=== PATIENT | female | born 1980 | race African-American/Black ===

== ENCOUNTER 2017-05-30 11:34 | Emergency (ER) | payer BC, OTHER ==
[2017-05-30 13:11] LABS: #Basophils 0.1 thou/uL (0.0-0.2); #Lymphocytes 1.7 thou/uL (1.20-3.40); #Monocytes 0.4 thou/uL (0.11-0.59); #Neutrophils 4.8 thou/uL (1.40-6.50); %Basophils 1.1 % (0.0-1.0); %Eosinophils 0.5 % (0.0-10.0); %Lymphocytes 23.8 % (21.0-51.0); %Monocytes 5.6 % (0.0-10.0); Hematocrit 36.3 % (36.0-47.0); Mean Platelet Volume 6.3 fL (7.4-10.4); Red Blood Cell (RBC) Count 4.08 mill/uL (4.20-5.40)
--- NOTE | 2017-05-30 13:58 | ULT ---
LIMITED OB ULTRASOUND: Date: 05/30/17 HISTORY: Vaginal bleeding. COMPARISON: None. TECHNIQUE: Transabdominal and endovaginal imaging of gravid uterus performed. FINDINGS: There is a single intrauterine gestation with breech presentation. There are heart tones with a rate of 150 beats/minute. Cervical length is 3.0-3.1 cm. Posterior right placenta. No evidence of previa. Biometry: BPD: 3.85 cm, 17 weeks/5 days HC: 14.67 cm, 17 weeks/6 days AC: 12.01 cm, 17 weeks/5 days FL: 2.32 cm, 17 weeks/0 days Estimated weight is 194 gm. Average age by sonography is 17 weeks/3 days. Estimated delivery date by sonography is 11/04/2017. IMPRESSION: 1. Single intrauterine gestation with breech presentation. 2. Average age by sonography is 17 weeks/3 days. 3. Cervical length between 3.0-3.1 cm. Obstetric consultation is recommended given the decreased le ngth of the cervix. 4. Incomplete survey. Follow-up imaging at 18-20 weeks is recommended. POS: [facility]
[2017-05-30 14:58] LABS: Bilirubin Negative (Negative); Blood, Urine Large (Negative); Glucose, Urine (Dipstick) Negative (Negative); Ketone, Urine 40 mg/dL (Negative); Nitrite Negative (Negative); Protein, Urine (Dipstick) 30 mg/dL (Neg-Trace); Urobilinogen 0.2 mg/dL (0.2-1.0)
[2017-05-30 15:04] LABS: Bacteria/HPF 1+ HPF (None Seen); Squamous Epithelial 21-50 HPF (0-3); WBC/HPF 0-3 HPF (0-3)
== END 2017-05-30 17:34 | disposition home or self-care (01) ==
LOC: SCSER 11:34
DX: O09.92 Supervision of high risk pregnancy, unspecified, second trimester (principal); O20.9 Hemorrhage in early pregnancy, unspecified; O26.872 Cervical shortening, second trimester; O99.512 Diseases of the respiratory system complicating pregnancy, second trimester; J45.909 Unspecified asthma, uncomplicated; O99.352 Diseases of the nervous system complicating pregnancy, second trimester; G43.909 Migraine, unspecified, not intractable, without status migrainosus; O99.342 Other mental disorders complicating pregnancy, second trimester; F41.9 Anxiety disorder, unspecified; Z3A.17 17 weeks gestation of pregnancy; Z79.899 Other long term (current) drug therapy
CPT/HCPCS: 76815; 76856; 81003; 81015; 85025; 87086

== ENCOUNTER 2017-09-16 03:55 | Day surgery (SDC) | payer BC ==
[2017-09-16 04:41] VITALS: BMI 36.8
--- NOTE | 2017-09-16 05:15 | PDOC.LDHP ---
Labor and Delivery H&P Chief complaint: other (low back pain radiating to groin) HPI: Patient of Dr Ratliff. Patient is a at 32 weeks with HX PTB at 36 weeks ( last one) and 28 weeks by CS X2 (both were in ), now with low back pain. No VB, No LOF. No fevers. Good FM. Review of Systems: Negative as per HPI Current gestational age (weeks): 32 Grav: 5 Para: 2 Current medications: other (Asthma MDIs, Progetserone) Previous surgical history: other (CS x2 in ) Allergies/Adverse Reactions: Allergies Allergy/AdvReac Type Severity Reaction Status Date / Time sumatriptan Allergy Severe Rash Verified 09/16/17 04:27 - Physical Exam Vital signs reviewed and normal: yes (BP 117/70 Temp 97.8) General: NAD Heart: RRR Lungs: CTAB Abdomen: gravid Extremeties: no edema FHT: category 1 [place] contractions every: irritability - Vaginal Exam cm dilated: 0 (per RN exam) Effacement: 25% Station: -1 - Plan -: Assessment and Plan: 32 weeks, HX CS x2, presents at 32 weeks with low back pian with radiation to back. No c/o of ctx. Closed cervix. Plan: 1. CBC/CMP 2. IVFs 3. Order bilateral renal sono R/O renal stone 4. No acute needs at this time
[2017-09-16] MEDS ORDERED: Promethazine HCl 25 MG/ML VIAL IM/IV PRN (05:20)
[2017-09-16] MEDS ORDERED: Lactated Ringer's 1,000 ML IV SCH (05:30)
[2017-09-16 06:03] LABS: Bilirubin Negative (Negative); Blood, Urine Negative (Negative); Clarity CLEAR (Clear); Glucose, Urine (Dipstick) Negative (Negative); Leukocyte Negative (Negative); Nitrite Negative (Negative); Protein, Urine (Dipstick) Negative (Neg-Trace); Specific Gravity, Urine 1.018 (1.002-1.036); Urobilinogen 0.2 mg/dL (0.2-1.0); pH, Urine 6.5 (5.0-9.0)
[2017-09-16 06:07] LABS: #Eosinphils 0.3 thou/uL (0.0-0.7); #Lymphocytes 1.7 thou/uL (1.20-3.40); #Monocytes 0.4 thou/uL (0.11-0.59); #Neutrophils 4.8 thou/uL (1.40-6.50); %Basophils 0.2 % (0.0-1.0); %Eosinophils 3.5 % (0.0-10.0); %Lymphocytes 23.9 % (21.0-51.0); %Monocytes 5.9 % (0.0-10.0); %Neutrophils 66.5 % (42.0-75.0); Hemoglobin 11.1 g/dL (12.0-16.0); Mean Corpuscular HGB CONC 32.5 g/dL (32.0-36.0); Mean Corpuscular Hemoglobin 29.7 pg (27.0-31.0); Mean Corpuscular Volume 91.2 fl (81.0-99.0); Mean Platelet Volume 6.4 fL (7.4-10.4); Platelet Count 318 thou/uL (130-400); RBC Distribution Width 12.7 % (11.5-14.5); Red Blood Cell (RBC) Count 3.73 mill/uL (4.20-5.40); White Blood Cell (WBC) Count 7.2 thou/uL (4.8-10.8)
[2017-09-16 06:25] LABS: ALT (SGPT) 7 U/L (8-55); AST (SGOT) 10 U/L (5-34); Albumin 3.4 g/dL (3.5-5.0); Alkaline Phosphatase 82 U/L (40-150); Anion Gap 11 mmol/L (10-20); BUN (Urea Nitrogen) 6 mg/dL (7.0-18.7); Bilirubin, Total 0.8 mg/dL (0.2-1.2); Calc. Creatinine Clearance 202 mL/min (70-130); Calcium 8.9 mg/dL (7.8-10.44); Carbon Dioxide 21 mmol/L (22-29); Chloride 109 mmol/L (98-107); Estimated GFR-MDRD Greater than 90; Globulin 2.4 g/dL (2.4-3.5); Glucose 66 mg/dL (70-105); Potassium 4.2 mmol/L (3.5-5.1); Protein, Total 5.8 g/dL (6.0-8.3); Sodium 137 mmol/L (136-145)
--- NOTE | 2017-09-16 06:34 | PDOC.EVN ---
Event Note - Event Note Event Note: Lab check: labs wnl
--- NOTE | 2017-09-16 06:45 | PDOC.EVN ---
Event Note - Event Note Event Note: Sono with expected hydro on right...otherwise ok. [place] may be physiologic at this time. She declines pain meds as she is driving. ok for outpatient care as no evidence UTI, pyelo, or PTL.
--- NOTE | 2017-09-16 08:09 | PDOC.EVN ---
Event Note - Event Note Event Note: @0800: D/W Radiology, no jet on right...will follow up. Dr Ratliff will be notified. There was no blood in urine. Dr Ratliff was notified to follow up with repeat sono as needed. Low suspicion for obstruction as no blood.
--- NOTE | 2017-09-16 08:34 | ULT ---
PRELIMINARY REPORT/[facility]/EMERGENCY AFTER HOURS PROCEDURE: EXAM: US Retroperitoneal Complete EXAM DATE/TIME: Exam ordered 09/16/2017 6:11 AM CLINICAL HISTORY: 37 years old, female; Pain; Abdominal pain; Flank; Other: Bilat flanks; ; Patient HX: 32 week s , flank pain TECHNIQUE: Real-time ultrasound of the retroperitoneum (complete) with image documentation. COMPARISON: No relevant prior studies available. FINDINGS: Right kidney: There is moderate RIGHT hydroureteronephrosis. RIGHT kidney measures 11.3 x 4.7 x 5.4 c m. No stones. Left kidney: LEFT kidney measures 11.5 x 5.8 x 5.0 cm no hydronephrosis. No stones. Bladder: Ureteral jets are not visualized. This is nonspecific and may be due to timing of ureteral p eristalsis. Obstructing calculus however cannot be excluded. IMPRESSION: There is moderate RIGHT hydroureteronephrosis. This may represent normal kidney dilatation of pregnan cy however obstructing ureterolithiasis this is also possible and clinical correlation is advised. Thank you for allowing us to participate in the care of your patient. Dictated and Authenticated by: Terrence Adame MD 09/16/2017 6:41 AM Central Time ([place] & [place]) FINAL REPORT RENAL ULTRASOUND: CLINICAL HISTORY: A 32-week gestational patient with bilateral back pain. FINDINGS: There is a moderate degree of right hydronephrosis. No overt left hydronephrosis. Ureteral jets are not elicited from this exam. The urinary bladder is mildly distended. IMPRESSION: Moderate right hydronephrosis. Ureteral jets are not elicited on this exam. Consider imaging follow up as clinically necessary. A telephone call of findings to patient's physician, Dr. Sacha Alberto, was placed at the time of inte rpretation. CODE CR POS: [facility]
== END 2017-09-16 06:55 | disposition home or self-care (01) ==
LOC: L&D/OP 03:55
PROVIDERS: ATTEND Obstetrics & Gynecology
DX: O99.89 Other specified diseases and conditions complicating pregnancy, childbirth and the puerperium (principal); M54.5 Low back pain; O99.52 Diseases of the respiratory system complicating childbirth; J45.909 Unspecified asthma, uncomplicated; Z88.8 Allergy status to other drugs, medicaments and biological substances; Z3A.32 32 weeks gestation of pregnancy; Z98.891 History of uterine scar from previous surgery
CPT/HCPCS: 51701; 76770; 80053; 81003; 85025; 96360; 96361; 99283

== ENCOUNTER 2017-09-17 10:04 | Outpatient (CLI) | payer BC ==
--- NOTE | 2017-09-17 13:39 | ULT ---
LIMITED ULTRASOUND URINARY BLADDER: Date: 09/17/17 HISTORY: Patient with right hydronephrosis noted on prior exam. Patient returns today for evaluation of the ur eteral jets. FINDINGS: Comparison is made with study on 09/16/17. As noted on prior exam, there is evidence of a single intrauterine gestation in cephalic presentation . This exam was performed primarily for evaluation of the ureteral jets. Urinary bladder is incomplet mervat distended. Color flow evaluation demonstrates the ureteral jets bilaterally. IMPRESSION: Color flow evaluation demonstrates ureteral jets bilaterally. POS: [facility]
== END 2017-09-17 10:05 | disposition home or self-care (01) ==
LOC: ULT 10:04
PROVIDERS: ATTEND Obstetrics & Gynecology
DX: R93.8 Abnormal findings on diagnostic imaging of other specified body structures (principal)
CPT/HCPCS: 76856

== ENCOUNTER 2017-11-01 05:39 | Inpatient (IN) | payer BC ==
--- NOTE | 2017-10-31 20:02 | PDOC.LDHP ---
Labor and Delivery H&P Chief complaint: scheduled section HPI: 37 yo @ 39w0d by LMP c/w 9 week sono who presents for repeat CS. Pt has h/ o 2 prior CS and 1 delivery. Antepartum course complicated by AMA, h/o PTD, requiring weekly 17 OHP, controlled asthma and valtrex for HSV suppression. Pt has been counseled on options for sterilization and risk reduction and desires a risk reducing salpingectomy due to family history of ovarian cancer at the time of her CS, which has been approved by the ethics committee. Current gestational age (weeks): 39 Due date: 11/08/17 Dating criteria: last menstrual period Grav: 5 Para: 2 OB History Details: 1 elective AB 1 SAB 2 CS (reports delivery approx 30 weeks for spontaneous labor x1 and report reviewed with LTCS @ 38 weeks x1) Current complications: none Abnormal US findings: Yes Past Medical History: Asthma, AMA, obesity Current medications: other (Albuterol PRN, valtrex,) Previous surgical history: low tranverse CS (x2), dilation and curettage Allergies/Adverse Reactions: Allergies Allergy/AdvReac Type Severity Reaction Status Date / Time sumatriptan Allergy Severe Rash Verified 11/01/17 06:07 Social history: none - Physical Exam Vital signs reviewed and normal: yes General: NAD Heart: RRR Lungs: nonlabored breathing Abdomen: gravid Extremeties: no edema FHT: category 1 (130s, mod carmen, +accels, no decels) [place] contractions every: irregular ctx - OB Labs Blood type: B RH: positive Antibody Screen: negative HIV: negative RPR: negative HEPSAg: negative 1 hour GCT: negative GBS: positive Urine drug screen: not done Rubella: immune - Assessment 39 week IUP 2 priors CS H/O PTL>PTD HSV Obesity AMA Controlled asthma Satisfied parity and family h/o ovarian cancer - Plan Plan: to OR for section, informed consent obtained, anesthesia consult for pain management -: Patient also desires a risk reducing salpingectomy to decrease risk of primary ovarian cancer based on family history. Pt has satisfied parity and has been counseled on sterilization as well.
[2017-11-01] MEDS ORDERED: Bicitra 30 ML UDCUP PO SCH (05:44)
[2017-11-01] MEDS ORDERED: Acetaminophen 500 MG TAB PO PRN (05:44)
[2017-11-01] MEDS ORDERED: Promethazine HCl 25 MG/ML VIAL IM PRN ×2 (05:44→07:39)
[2017-11-01] MEDS ORDERED: CEFAZOLIN/Water 2 GM/20 ML SYRINGE SLOW IVP SCH (05:44)
[2017-11-01] MEDS ORDERED: Ondansetron HCl/PF 4 MG/2 ML Vial IVP PRN ×3 (05:44→07:39)
[2017-11-01 06:06] VITALS: BMI 37.8
[2017-11-01] MEDS: Lactated Ringer's 1,000 ML IV SCH ×3 (06:14→16:24)
[2017-11-01 06:26] LABS: Hemoglobin 11.6 g/dL (12.0-16.0); Mean Corpuscular HGB CONC 33.6 g/dL (32.0-36.0); Mean Corpuscular Hemoglobin 30.1 pg (27.0-31.0); Mean Corpuscular Volume 89.4 fl (81.0-99.0); Mean Platelet Volume 6.1 fL (7.4-10.4); Platelet Count 311 thou/uL (130-400); Red Blood Cell (RBC) Count 3.84 mill/uL (4.20-5.40)
[2017-11-01] MEDS ORDERED: Morphine PF 1 MG/ML SYR ONE (06:37)
[2017-11-01] MEDS ORDERED: Fentanyl 100 MCG/2 ML VIAL ONE (06:37)
[2017-11-01] MEDS ORDERED: Ketorolac Tromethamine 30 MG/ML VIAL ONE ×2 (07:02→10:43)
[2017-11-01] MEDS ORDERED: Bupivacaine 0.75% W/DEXTROSE 8.25% 2 ML AMP ONE (07:02)
[2017-11-01 07:06] LABS: Syphilis Antibody Nonreactive (Nonreactive); Syphilis Antibody Index 0.13 S/CO (<1.00 Non-Reactive)
[2017-11-01 07:07] LABS: HBSAg Index 0.15 S/CO (0-0.99); HIV (1/2) Antibody/Antigen Non-Reactive (NonReactive); HIV 1/2 INDEX 0.09 S/CO (<1.00); Hep B Surf Ag Non-Reactive S/CO (NonReactive)
[2017-11-01] MEDS ORDERED: Bicitra 30 ML UDCUP ONE (07:09)
[2017-11-01] MEDS ORDERED: diphenhydrAMINE 50 MG/ML VIAL IVP PRN (07:39)
[2017-11-01] MEDS ORDERED: HYDROmorphone 2 MG/ML VIAL SLOW IVP PRN (07:39)
[2017-11-01] MEDS ORDERED: Eucerin (Mineral Oil/Petrolatum,White) 30 gm Jar TOP PRN (07:39)
[2017-11-01] MEDS ORDERED: Naloxone HCl 0.4 mg/ml Vial IVP PRN ×2 (07:39)
[2017-11-01] MEDS ORDERED: Promethazine HCl 25 MG SUPP PR PRN (07:39)
[2017-11-01] MEDS ORDERED: Naloxone HCl 0.4 mg/ml Vial IV PRN (07:39)
[2017-11-01] MEDS ORDERED: Ketorolac Tromethamine 30 MG/ML VIAL IVP SCH (07:45)
[2017-11-01] MEDS ORDERED: Oxytocin 10 UNITS/ML VIAL ONE (07:45)
[2017-11-01] MEDS ORDERED: Communication Order-Pharmacy FS SCH (07:45)
--- NOTE | 2017-11-01 08:34 | PDOC.OPDEL ---
OB Operative/Delivery Note Delivery Dr/Surgeon: Lisset Yeung DO Assist: Quyen Negron MD Pre-Delivery Diagnosis: scheduled section Procedure/Post Delivery Dx: repeat low transverse CS (and risk reducing bilateral salpingectomy) Weeks gestation: 39 Anesthesia: spinal - Findings A Sex: male - 1 min: 8 - 5 min: 9 - Additional Findings/Plan Placenta delivered: spontaneous findings: low transverse hysterotomy with extension, normal uterus, normal tubes, normal ovaries Estimated blood loss: 600 cc Compilations/Other Findings: No complications. in cephalic presentation Clear amniotic fluid Normal appearing placenta Post delivery plan: routine recovery
[2017-11-01] MEDS ORDERED: LR / Pitocin 40 units/1000 ml 1,000 ML ONE (08:55)
--- NOTE | 2017-11-01 09:34 | OP ---
DATE OF PROCEDURE: 11/01/2017 POSTOPERATIVE DIAGNOSES: 1. A 39-week 0 day intrauterine . 2. Previous delivery x2. 3. History of delivery due to labor. 4. Advanced maternal age. 5. History of genital herpes. 6. Satisfied parity. 7. Family history of ovarian cancer. PROCEDURES: 1. Repeat low transverse delivery via Pfannenstiel skin incision. 2. Risk reducing bilateral salpingectomy. SURGEON: Lisset Yeung D.O. LEAD ENGINEER: Kirsten Negron M.D. COMPLICATIONS: None. ESTIMATED BLOOD LOSS: 600 mL. IV FLUIDS: 900 mL. URINE OUTPUT: 400 mL of clear urine. ANESTHESIA: Spinal. INDICATIONS FOR THE PROCEDURE: Ms. Frances Barreto is a 37-year-old at 39 weeks and 0 days by LMP, consistent with a 9-week sonogram who has a history of 2 prior deliveries. The patient's antepartum course was complicated by history of delivery at approximately 30 weeks when she required weekly progesterone. The patient also complicated by advanced maternal age, history of controlled asthma and history of genital herpes. The patient has been counseled in clinic regarding her family history of ovarian cancer and strongly desired risk reducing salpingectomy to decrease her risk for primary ovarian cancer as well as she has satisfied parity. FINDINGS: Normal appearing uterus, fallopian tubes and ovaries bilaterally. Viable male infant, Apgars 8 and 9 in cephalic presentation, normal appearing placenta and clear amniotic fluid. PROCEDURE IN DETAIL: The patient was brought to the operating room. She was placed under spinal anesthesia. She was placed in supine position with a leftward tilt. A Sanchez catheter was placed. heart tones were assessed and noted to be 135. The patient was prepped and draped in a sterile fashion and Ancef was given preoperatively. Anesthesia was assessed and proved to be adequate. An official timeout was performed. A Pfannenstiel skin incision was made through the previous scar down to the level of the fascia. The fascia was incised in the midline using the scalpel and extended bilaterally using Talbert scissors. The superior aspect of the fascial incision was grasped using [place] clamps, tented upward and dissected free from the underlying rectus abdominis muscles and the same was done to the inferior aspect of the incision. There was bleeding noted along the rectus abdominis muscles which required coagulation with the Bovie. The rectus abdominis muscles were then using blunt dissection. The peritoneum was identified. It was grasped using hemostat and incised using Metzenbaum scissors. This insertion was extended using blunt dissection. Marquis O retractor was placed into the abdomen and appropriately secured. The low transverse hysterotomy was made using the scalpel. The hysterotomy was extended using blunt dissection. The amniotic membranes were ruptured, noting clear amniotic fluid and using Allis clamp. The was delivered in cephalic presentation without difficulty. 's cord was clamped and cut. The infant was handed to the awaiting neonatology team. Cord blood was obtained and the placenta was delivered spontaneously intact. The uterus was cleared of all clot and debris. Hysterotomy was closed in a running locking fashion using #1 Monocryl. Hysterotomy was hemostatic after closure. Attention was turned to the bilateral fallopian tubes. The right fallopian tube was grasped using [place] at mid position. The Bovie was used to coagulate the avascular portion of the mesosalpinx, hemostats were placed on the distal and the proximal end and the vasculature on the middle aspect of the mesosalpinx and the right fallopian tube was removed entirely. The pedicle sites were hemostatic with the use of chromic. This was performed on the left fallopian tube as well and all sites were hemostatic. The uterus was placed back into the abdomen. The abdomen was irrigated and cleared of all clot and debris. Again, the hysterotomy was evaluated and noted to be hemostatic and the bilateral fallopian tube pedicle sites were evaluated and noted to be hemostatic. The bilateral ovaries appeared normal. The Marquis O retractor was removed from the abdomen. The rectus abdominis muscles did have oozing of the right aspect which required coagulation using the Bovie and suture to create hemostasis. The fascia was then closed in a running fashion using 0 PDS. The subcutaneous layer was copiously irrigated and was hemostatic with use of the Bovie. There were several sites of oozing that required coagulation. The subcutaneous layer was closed using running fashion using 3-0 Vicryl. The skin was closed using jorge and a pressure dressing was applied. The patient tolerated the procedure well. There were no complications. All counts were correct x3. Infant and mother were transferred to routine recovery. ANGELIQUE
[2017-11-01] MEDS ORDERED: Meperidine HCl/PF 25 MG/ML VIAL ONE ×2 (09:51→10:30)
[2017-11-01] MEDS: Meperidine HCl/PF 25 MG/ML VIAL SLOW IVP PRN ×2 (09:52→10:30)
[2017-11-01] MEDS ORDERED: Ondansetron HCl/PF 4 MG/2 ML Vial ONE (10:43)
[2017-11-01] MEDS ORDERED: PHENYLEPHRINE-NS 100 MCG/ML 10 ML SYRINGE ONE (10:43)
[2017-11-01] MEDS ORDERED: Morphine 10 MG/ML VIAL ONE (10:46)
[2017-11-01] MEDS ORDERED: HYDROcodone/Acetaminophen 5/325 mg Tablet PO PRN (11:48)
[2017-11-01] MEDS ORDERED: Bisacodyl 10 MG SUPP PR PRN (11:48)
[2017-11-01] MEDS ORDERED: Simethicone Chewable 80 MG TAB PO PRN (11:48)
[2017-11-01] MEDS ORDERED: Methylergonovine 0.2 MG/ML VIAL IM PRN (11:48)
[2017-11-01] MEDS ORDERED: Misoprostol 200 MCG TAB PR SCH (12:30)
[2017-11-01] MEDS: Ketorolac Tromethamine 30 MG/ML VIAL IVP PRN ×2 (16:18→22:35)
[2017-11-02] MEDS: Docusate Calcium (SURFAK) 240 MG CAP PO SCH ×3 (01:35→19:32)
[2017-11-02] MEDS: HYDROcodone/Acetaminophen 5/325 mg Tablet PO PRN ×3 (03:49→23:42)
[2017-11-02 05:56] LABS: #Eosinphils 0.1 thou/uL (0.0-0.7); #Lymphocytes 1.9 thou/uL (1.20-3.40); #Monocytes 0.6 thou/uL (0.11-0.59); #Neutrophils 6.8 thou/uL (1.40-6.50); %Basophils 0.5 % (0.0-1.0); %Eosinophils 0.9 % (0.0-10.0); %Lymphocytes 19.9 % (21.0-51.0); %Monocytes 5.9 % (0.0-10.0); %Neutrophils 72.9 % (42.0-75.0); Hemoglobin 10.1 g/dL (12.0-16.0); Mean Corpuscular HGB CONC 32.9 g/dL (32.0-36.0); Mean Corpuscular Hemoglobin 29.8 pg (27.0-31.0); Mean Corpuscular Volume 90.5 fl (81.0-99.0); Mean Platelet Volume 6.2 fL (7.4-10.4); Platelet Count 252 thou/uL (130-400); RBC Distribution Width 12.9 % (11.5-14.5); White Blood Cell (WBC) Count 9.4 thou/uL (4.8-10.8)
[2017-11-02] MEDS: Lactated Ringer's 1,000 ML IV SCH ×3 (06:11→22:30)
[2017-11-02] MEDS ORDERED: Ibuprofen 800 MG TAB PO SCH (06:15)
[2017-11-02] MEDS: Prenatal Vitamin 1 TAB PO SCH (08:36)
[2017-11-02] MEDS: Ibuprofen 800 MG TAB PO SCH ×2 (13:49→21:15)
--- NOTE | 2017-11-02 21:46 | PDOC.PP ---
Post Progress Note Post Day #: 1 PO intake tolerated: yes Flatus: yes Ambulation: yes Vital Signs (12 hours) Temp Pulse Resp BP BP Pulse Ox 11/02/17 19:30 98.5 F 82 20 121/64 100 11/02/17 17:27 98.2 F 77 20 118/66 11/02/17 16:00 97.9 F 75 20 11/02/17 12:00 97.9 F 75 20 11/02/17 11:52 97.9 F 75 20 121/67 Weight Weight 234 lb - Physical Examination General: NAD Cardiovascular: RRR Respiratory: non-labored breathing Abdominal: no distention, appropriately TTP Fundus firm & at: umb Extremities: negative homans (B) Skin: CS incision dry & intact Neurological: no gross focal deficits Psychiatric: normal affect Result Diagrams: 11/02/17 05:13 Additional Labs: Post Labs Blood Type B POSITIVE 11/01/17 06:04 Hep Bs Antigen Non-Reactive S/CO (NonReactive) 11/01/17 06:04 - Assessment/Plan POD1 from RCS and RRS VSSAF Doing well appropriate milestones Hgb appropriate postop, mild asymptomatic anemia due to surgical blood loss, cont PNV Rh pos RImm Br and bottle feeding Cont postop care.
[2017-11-03] MEDS: Ibuprofen 800 MG TAB PO SCH ×3 (06:30→21:07)
[2017-11-03] MEDS: Lactated Ringer's 1,000 ML IV SCH ×3 (07:16→22:46)
--- NOTE | 2017-11-03 08:39 | PDOC.PP ---
Post Progress Note Post Day #: 1 Subjective: Pain controlled. Minimal lochia. Breast feeding. PO intake tolerated: yes Flatus: yes Ambulation: yes Vital Signs (12 hours) Temp Pulse Resp BP 11/03/17 07:49 98.9 F 85 20 123/77 11/03/17 07:40 98.9 F 85 20 11/02/17 23:40 97.9 F 87 20 119/72 Weight Weight 234 lb - Physical Examination General: NAD Cardiovascular: RRR Respiratory: non-labored breathing Abdominal: + bowel sounds, no distention, appropriately TTP Fundus firm & at: below umbilicus Extremities: negative homans (B) Skin: CS incision dry & intact Neurological: no gross focal deficits Psychiatric: A&Ox3, normal affect Result Diagrams: 11/02/17 05:13 Additional Labs: Post Labs Blood Type B POSITIVE 11/01/17 06:04 Hep Bs Antigen Non-Reactive S/CO (NonReactive) 11/01/17 06:04 (1) delivery delivered Code(s): O82 - ENCOUNTER FOR DELIVERY WITHOUT INDICATION Status: Acute - Assessment/Plan PPD1 s/p RLTCS with RRS VSSAF Meeting requirements for discharge. D/C home with infant. F/U 7 days for staple removal.
[2017-11-03] MEDS: Prenatal Vitamin 1 TAB PO SCH (09:44)
[2017-11-03] MEDS: Docusate Calcium (SURFAK) 240 MG CAP PO SCH ×2 (09:44→21:07)
[2017-11-04] MEDS: Ibuprofen 800 MG TAB PO SCH ×2 (06:09→14:47)
[2017-11-04] MEDS: Lactated Ringer's 1,000 ML IV SCH ×2 (06:11→14:47)
[2017-11-04 07:57] VITALS: BP 138/76; TEMP 98.6
--- NOTE | 2017-11-04 08:26 | PDOC.PP ---
Post Progress Note Post Day #: 3 PO intake tolerated: yes Flatus: yes Ambulation: yes Vital Signs (12 hours) Temp Pulse Resp BP 11/04/17 07:56 98.6 F 93 20 138/76 Weight Weight 234 lb - Physical Examination General: NAD Cardiovascular: RRR Respiratory: non-labored breathing Abdominal: no distention, appropriately TTP Extremities: negative homans (B) Skin: CS incision dry & intact Neurological: no gross focal deficits Psychiatric: A&Ox3 Result Diagrams: 11/02/17 05:13 Additional Labs: Post Labs Blood Type B POSITIVE 11/01/17 06:04 Hep Bs Antigen Non-Reactive S/CO (NonReactive) 11/01/17 06:04 (1) delivery delivered Code(s): O82 - ENCOUNTER FOR DELIVERY WITHOUT INDICATION Status: Acute - Assessment/Plan PPD3 D/C held yesterday due to . Plan for d/c home today. Meeting all requirements for d/c. F/U 7 days.
[2017-11-04] MEDS: Prenatal Vitamin 1 TAB PO SCH (09:14)
[2017-11-04] MEDS: Docusate Calcium (SURFAK) 240 MG CAP PO SCH (09:14)
== END 2017-11-04 15:05 | disposition home or self-care (01) | DRG 766 ==
LOC: L&D 05:39 → 3SE 11:31 → 3SW 21:41
PROVIDERS: ADMIT Obstetrics & Gynecology; ATTEND Obstetrics & Gynecology
PROC: 10D00Z1 Extraction of Products of Conception, Low, Open Approach (ICD-10-PCS; principal; 2017-11-01)
PROC: 0UT70ZZ Resection of Bilateral Fallopian Tubes, Open Approach (ICD-10-PCS; 2017-11-01)
DX: O34.211 Maternal care for low transverse scar from previous cesarean delivery (principal); E66.9 Obesity, unspecified; N85.8 Other specified noninflammatory disorders of uterus; Z37.0 Single live birth; Z3A.39 39 weeks gestation of pregnancy; O99.214 Obesity complicating childbirth; Z68.37 Body mass index [BMI] 37.0-37.9, adult; O99.52 Diseases of the respiratory system complicating childbirth; J45.909 Unspecified asthma, uncomplicated; Z88.8 Allergy status to other drugs, medicaments and biological substances
CPT/HCPCS: 36415; 51702; 85025; 85027; 86780; 86850; 86900; 86901; 87340; 87389; 88302; J0131; J1885; J2175; J2270; J2274; J2405; J2590; J3010; J3490

== ENCOUNTER 2019-10-13 21:31 | Emergency (ER) | payer BC ==
[2019-10-13] MEDS ORDERED: Ketorolac Tromethamine 30 MG/ML VIAL ONE (21:55)
--- NOTE | 2019-10-13 21:56 | RAD ---
Right ankle 3 views: 10/13/2019 COMPARISON: None HISTORY: Injury, trauma, pain FINDINGS: No fracture or dislocation. There is enthesophyte formation at the insertion of the [place] s tendon. Talar dome and ankle mortise appear intact. IMPRESSION: No displaced fracture or evidence of dislocation.
== END 2019-10-13 22:16 | disposition home or self-care (01) ==
LOC: ERS 21:31
DX: S93.401A Sprain of unspecified ligament of right ankle, initial encounter (principal); J45.909 Unspecified asthma, uncomplicated; G43.909 Migraine, unspecified, not intractable, without status migrainosus; F41.9 Anxiety disorder, unspecified; F32.9 Major depressive disorder, single episode, unspecified; X50.9XXA Other and unspecified overexertion or strenuous movements or postures, initial encounter
CPT/HCPCS: 96372; J1885

== ENCOUNTER 2020-11-26 15:01 | Outpatient (CLI) | payer BC ==
[2020-11-26 18:30] LABS: #Basophils 0.1 thou/uL (0.0-0.2); #Eosinphils 0.1 thou/uL (0.0-0.7); #Lymphocytes 2.9 thou/uL (1.20-3.40); #Monocytes 0.4 thou/uL (0.11-0.59); %Basophils 0.7 % (0.0-1.0); %Eosinophils 1.7 % (0.0-10.0); %Lymphocytes 38.7 % (21.0-51.0); %Monocytes 5.8 % (0.0-10.0); %Neutrophils 53.2 % (42.0-75.0); Mean Corpuscular HGB CONC 31.6 g/dL (32.0-36.0); Mean Corpuscular Hemoglobin 28.8 pg (27.0-31.0); Platelet Count 330 thou/uL (130-400); Red Blood Cell (RBC) Count 3.82 mill/uL (4.20-5.40); White Blood Cell (WBC) Count 7.5 thou/uL (4.8-10.8)
[2020-11-26 18:55] LABS: ALT (SGPT) 9 U/L (8-55); AST (SGOT) 14 U/L (5-34); Albumin 3.8 g/dL (3.5-5.0); Alkaline Phosphatase 50 U/L (40-110); Anion Gap 11 mmol/L (10-20); BUN (Urea Nitrogen) 8 mg/dL (7.0-18.7); Bilirubin, Total 0.6 mg/dL (0.2-1.2); Calc. Creatinine Clearance 0 mL/min (70-130); Calcium 8.9 mg/dL (7.8-10.44); Carbon Dioxide 25 mmol/L (22-29); Chloride 108 mmol/L (98-107); Globulin 2.6 g/dL (2.4-3.5); Glucose 81 mg/dL (70-105); Lipase 46 U/L (8-78); Potassium 3.8 mmol/L (3.5-5.1); Protein, Total 6.4 g/dL (6.0-8.3); Sodium 140 mmol/L (136-145)
== END 2020-11-26 15:02 | disposition home or self-care (01) ==
LOC: SCSRAD 15:01
PROVIDERS: ATTEND Family Medicine
DX: R06.02 Shortness of breath (principal); R10.13 Epigastric pain; Z86.16 Personal history of COVID-19
CPT/HCPCS: 36415; 71046; 74019; 80053; 83690; 85025; 85379